=== PATIENT | female | born 1945 | race American Indian/Alaskan Native ===

== ENCOUNTER 2017-10-04 12:10 | Outpatient (CLI) | payer MEDICARE ==
--- NOTE | 2017-10-04 16:05 | Mammography Report ---
BILATERAL DIGITAL SCREENING MAMMOGRAM with CAD: 10/04/17 12:10:00 CLINICAL: Routine screening. COMPARISON:10/01/16 FINDINGS: The breasts are heterogeneously dense, which may obscure small masses. A right asymmetry on the CC view requires additional imaging.No architectural distortion or suspicious calcifications.The left breast is negative. IMPRESSION: Right asymmetry requiring further workup. BI-RADS CATEGORY: 0 -- Additional Imaging Evaluation Required RECOMMENDATION: Recall for right lateralmedial and spot magnification CC views and right breast ultrasound if needed. ACR BI-RADS MAMMOGRAPHIC CODES: 0 = Needs additional imaging evaluation; 1 = Negative; 2 = Benign; 3 = Probably benign; 4 = Suspicious; 5 = Malignant; 6 = Known biopsy-proven malignancy COMMENT: 1. Dense breast tissue, i.e., adenosis, fibrocystic changes, etc., may obscure an underlying neoplasm. 2. Approximately 10% of cancers are not detected with mammography. 3. A negative mammography report should not delay biopsy if a clinically suspicious mass is present. COMMENT: Patient follow-up letters are generated via our [employer] application.
== END 2017-10-04 12:11 | disposition home or self-care (01) ==
LOC: MAMMO 12:10
PROVIDERS: ATTEND Obstetrics & Gynecology
DX: Z12.31 Encounter for screening mammogram for malignant neoplasm of breast (principal); I10 Essential (primary) hypertension; E03.9 Hypothyroidism, unspecified; I25.10 Atherosclerotic heart disease of native coronary artery without angina pectoris; E78.5 Hyperlipidemia, unspecified
CPT/HCPCS: 77067

== ENCOUNTER 2017-10-21 12:18 | Outpatient (CLI) | payer MEDICARE ==
--- NOTE | 2017-10-21 13:14 | Mammography Report ---
RIGHT DIGITAL DIAGNOSTIC MAMMOGRAM : 10/21/17 12:18:00 CLINICAL: Recalled for asymmetry. COMPARISON:10/04/17 screening FINDINGS: Lateralmedial and spot compression were performed. Near complete effacement of asymmetry on a spot view CC. This appears to be a focus of asymmetric breast parenchyma that was present on the MLO view from 10/02/15. IMPRESSION: No mammographic evidence of malignancy. BI-RADS CATEGORY: 2 - - Benign RECOMMENDATION: Routine mammographic screening in one year. ACR BI-RADS MAMMOGRAPHIC CODES: 0 = Needs additional imaging evaluation; 1 = Negative; 2 = Benign; 3 = Probably benign; 4 = Suspicious; 5 = Malignant; 6 = Known biopsy-proven malignancy COMMENT: 1. Dense breast tissue, i.e., adenosis, fibrocystic changes, etc., may obscure an underlying neoplasm. 2. Approximately 10% of cancers are not detected with mammography. 3. A negative mammography report should not delay biopsy if a clinically suspicious mass is present. COMMENT: Patient follow-up letters are generated via our [employer] application.
== END 2017-10-21 12:19 | disposition home or self-care (01) ==
LOC: MAMMO 12:18
PROVIDERS: ATTEND Obstetrics & Gynecology
DX: R92.8 Other abnormal and inconclusive findings on diagnostic imaging of breast (principal)

== ENCOUNTER 2018-10-19 17:18 | Emergency (ER) | payer MEDICARE ==
--- NOTE | 2018-10-19 17:55 | Emergency Department Report ---
ED General Adult HPI - General Chief complaint: Extremity Injury, Lower Stated complaint: LEG PAIN/PASS BLOOD CLOT Time Seen by Provider: 10/19/18 17:52 Source: EMS Mode of arrival: Stretcher Limitations: No Limitations - History of Present Illness Initial comments: Patient is a 73-year-old female was referred by her primary care doctor for concern for right lower leg DVT. Patient states that she is having pain in her right lower leg pain as 6 out of 10 is an achy type of pain doesn't radiate. Patient doesn't have any nausea or vomiting no shortness of breath no chills. - Related Data Home Medications Medication Instructions Recorded Confirmed Last Taken Albuterol Sulfate [Proair Hfa] 1 puff IH PRN PRN 02/02/17 02/02/17 Unknown Amlodipine Besylate 5 mg PO DAILY 02/02/17 02/02/17 02/01/17 Carvedilol 12.5 mg PO BID 02/02/17 02/02/17 02/01/17 Levothyroxine [Synthroid] 100 mcg PO QAM 02/02/17 02/02/17 02/01/17 Triamterene/Hydrochlorothiazid 1 tab PO DAILY 02/02/17 02/02/17 02/01/17 [Triamterene-Hctz 37.5-25 mg] Previous Rx's Medication Instructions Recorded Last Taken Type Aspirin [Aspirin TAB] 325 mg PO QDAY #30 tablet 02/03/17 Unknown Rx Prasugrel [Effient] 10 mg PO QDAY #30 tablet 02/03/17 Unknown Rx Simvastatin [Zocor TAB] 40 mg PO QHS #30 tablet 02/03/17 Unknown Rx Diclofenac Sodium [Voltaren] 100 gm TP Q6H #1 gel..gram. 10/19/18 Unknown Rx Allergies Allergy/AdvReac Type Severity Reaction Status Date / Time No Known Allergies Allergy Verified 02/02/17 06:42 ED Review of Systems ROS: Stated complaint: LEG PAIN/PASS BLOOD CLOT Other details as noted in HPI Constitutional: denies: chills, fever Eyes: denies: eye pain, eye discharge, vision change ENT: denies: ear pain, throat pain Respiratory: denies: cough, shortness of breath, wheezing Cardiovascular: denies: chest pain, palpitations Endocrine: no symptoms reported Gastrointestinal: denies: abdominal pain, nausea, diarrhea Genitourinary: denies: urgency, dysuria, discharge Musculoskeletal: other (leg pain). denies: back pain, joint swelling, arthralgia Skin: denies: rash, lesions Neurological: denies: headache, weakness, paresthesias Psychiatric: denies: anxiety, depression Hematological/Lymphatic: denies: easy bleeding, easy bruising ED Past Medical Hx - Past Medical History Hx Hypertension: Yes Hx GERD: Yes Hx Arthritis: Yes - Social History Smoking Status: Never Smoker Substance Use Type: None - Medications Home Medications: Home Medications Medication Instructions Recorded Confirmed Last Taken Type Albuterol Sulfate [Proair Hfa] 1 puff IH PRN PRN 02/02/17 02/02/17 Unknown History Amlodipine Besylate 5 mg PO DAILY 02/02/17 02/02/17 02/01/17 History Carvedilol 12.5 mg PO BID 02/02/17 02/02/17 02/01/17 History Levothyroxine [Synthroid] 100 mcg PO QAM 02/02/17 02/02/17 02/01/17 History Triamterene/Hydrochlorothiazid 1 tab PO DAILY 02/02/17 02/02/17 02/01/17 History [Triamterene-Hctz 37.5-25 mg] Aspirin [Aspirin TAB] 325 mg PO QDAY #30 tablet 02/03/17 Unknown Rx Prasugrel [Effient] 10 mg PO QDAY #30 tablet 02/03/17 Unknown Rx Simvastatin [Zocor TAB] 40 mg PO QHS #30 tablet 02/03/17 Unknown Rx Diclofenac Sodium [Voltaren] 100 gm TP Q6H #1 gel..gram. 10/19/18 Unknown Rx ED Physical Exam - General Limitations: No Limitations General appearance: alert, in no apparent distress - Head Head exam: Present: atraumatic, normocephalic - Eye Eye exam: Present: normal appearance - ENT ENT exam: Present: mucous membranes moist - Neck Neck exam: Present: normal inspection - Respiratory Respiratory exam: Present: normal lung sounds bilaterally. Absent: respiratory distress - Cardiovascular Cardiovascular Exam: Present: regular rate, normal rhythm. Absent: systolic m urmur, diastolic murmur, rubs, gallop - GI/Abdominal GI/Abdominal exam: Present: soft, normal bowel sounds - Extremities Exam Extremities exam: Present: normal inspection - Back Exam Back exam: Present: normal inspection - Neurological Exam Neurological exam: Present: alert, oriented X3 - Psychiatric Psychiatric exam: Present: normal affect, normal mood - Skin Skin exam: Present: warm, dry, intact, normal color. Absent: rash ED Course Vital Signs 10/19/18 10/19/18 10/19/18 17:24 17:36 17:37 Temperature 98.4 F Pulse Rate 64 62 61 Respiratory 19 17 Rate Blood Pressure 159/74 148/64 O2 Sat by Pulse 95 Oximetry 10/19/18 17:38 Temperature Pulse Rate 59 L Respiratory 19 Rate Blood Pressure 148/64 O2 Sat by Pulse Oximetry ED Medical Decision Making - Medical Decision Making Cdx: DVT Ddx: SVT, myalgia I will give patient voltaren and a lovenox shot. Discussed plan with patient and she agrees with plan additional verbal discharge orders were [email or web address] Critical care attestation.: If time is entered above; I have spent that time in minutes in the direct care of this critically ill patient, excluding procedure time. ED Disposition Clinical Impression: Right leg pain, Tension headache Disposition: DC-01 TO HOME OR SELFCARE Is pt being admited?: No Does the pt Need Aspirin: No Condition: Stable Prescriptions: Diclofenac Sodium [Voltaren] 100 gm TP Q6H #1 gel..gram.
[2018-10-19] MEDS ORDERED: NORCO 5/325 PO ONE (18:35)
[2018-10-19] MEDS ORDERED: FIORICET PO ONE (18:35)
[2018-10-19] MEDS ORDERED: MORPHINE IM ONE (18:50)
[2018-10-19] MEDS ORDERED: LOVENOX SUB-Q ONE (19:36)
[2018-10-19] MEDS ORDERED: LOVENOX SUB-Q SCH (20:00)
[2018-10-19 21:00] VITALS: BP 143/72
== END 2018-10-19 20:01 | disposition home or self-care (01) ==
LOC: ED 17:18
DX: M79.661 Pain in right lower leg (principal); G44.209 Tension-type headache, unspecified, not intractable; I10 Essential (primary) hypertension; M19.90 Unspecified osteoarthritis, unspecified site; K21.9 Gastro-esophageal reflux disease without esophagitis
CPT/HCPCS: 82962; 96372; 99283; J1650; J2270

== ENCOUNTER 2018-10-20 10:15 | Outpatient (CLI) | payer MEDICARE ==
--- NOTE | 2018-10-20 16:30 | Vascular Lab Report ---
FINAL REPORT EXAM: VL VENOUS DUPLEX LE RT HISTORY: LOWER EXTREMITY PAIN TECHNIQUE: Mancia scale, color and pulsed Doppler ultrasound with color flow and spectral analysis davon luation of the right lower extremity was performed to assess for deep vein thrombosis. PRIORS: None currently available. FINDINGS: RIGHT Extremity: There is normal grayscale appearance and compressibility. Normal phasic pulsed Doppler and normal color Doppler flow are visualized. The interrogated vessels s how normal augmentation. IMPRESSION: No evidence for DVT.
== END 2018-10-20 10:16 | disposition home or self-care (01) ==
LOC: VAS 10:15
PROVIDERS: ATTEND Emergency Medicine
DX: M79.661 Pain in right lower leg (principal); I10 Essential (primary) hypertension; E78.5 Hyperlipidemia, unspecified; K21.9 Gastro-esophageal reflux disease without esophagitis; E03.9 Hypothyroidism, unspecified; M19.90 Unspecified osteoarthritis, unspecified site